=== PATIENT | male | born 1980 | race Two or more races ===

== ENCOUNTER 2019-06-06 10:12 | Outpatient (CLI) | payer OTHER | END 2019-06-06 10:22 | disposition home or self-care (01) | LOC: LAB 10:12 | DX: I11.9 Hypertensive heart disease without heart failure (principal); E78.2 Mixed hyperlipidemia; R07.89 Other chest pain ==

== ENCOUNTER 2023-07-03 07:15 | Outpatient (CLI) | payer OTHER | END 2023-07-03 07:24 | disposition home or self-care (01) | LOC: TOM 07:15 | PROVIDERS: ATTEND Internal Medicine | DX: R10.84 Generalized abdominal pain (principal); Z00.00 Encounter for general adult medical examination without abnormal findings ==

== ENCOUNTER 2023-12-31 10:49 | Emergency (ER) | payer OTHER ==
[~2023-12-31] VITALS: Ht 175.3 cm; Wt 69.9 kg
[2023-12-31] MEDS ORDERED: KETOROLAC TROMETHAMINE 60 MG VIAL IM ONE (12:00)
[2023-12-31 12:43] LABS: HEMATOCRIT 41.9 % (39.0-48.0); HEMOGLOBIN 14.3 g/dL (13-16.00); MEAN CELL VOLUME 91.7 fL (80.0-100.00); MEAN CORPUSCULAR HEMOGLOBIN 31.3 pg (27.00-32.0); MEAN CORPUSCULAR HGB CONC 34.1 g/dl (32.0-36.0); PLATELET COUNT 191 K/uL (150-450); RED BLOOD COUNT 4.57 M/uL (4.00-6.00); RED CELL DISTRIBUTION WIDTH 13.7 % (11.5-14.5)
[2023-12-31 12:47] LABS: URINE APPEARANCE Clear; URINE BILIRRUBIN Negative (NEGATIVE); URINE BLOOD Negative; URINE COLOR Yellow; URINE GLUCOSE Negative (NEGATIVE); URINE LEUKOCYTE Negative; URINE NITRATE Negative; URINE PROTEIN Negative (NEGATIVE); URINE UROBILINOGEN 0.2 E.U./dl
[2023-12-31 12:51] LABS: URINE RBC 2.4 uL (0.0-20.8); URINE WBC 2.4 uL (0.0-23.2)
[2023-12-31 12:58] LABS: URINE BACTERIA 0 uL (0.0-1933); URINE EPITHELIAL CELLS 0.4 uL (0.0-38.8)
[2023-12-31] MEDS ORDERED: DICLOFENAC SODI75 MG PO (14:44)
== END 2023-12-31 14:46 | disposition home or self-care (01) ==
LOC: ER
PROVIDERS: General Practice
DX: N50.811 Right testicular pain (principal); I86.1 Scrotal varices; L72.0 Epidermal cyst